=== PATIENT | female | born 1960 | race Caucasian/White ===

== ENCOUNTER 2018-09-07 16:55 | Day surgery (SDC) | payer OTHER ==
[~2018-09-07] VITALS: Ht 160 cm; Wt 104.3 kg
[2018-09-07 16:55] VITALS: BP_SYST 165
[2018-09-07 17:19] LABS: BASOPHILS # (AUTO) 0.1 K/uL (0.0-0.2); BASOPHILS % (AUTO) 0.8 % (0.0-2.0); EOSINOPHILS # (AUTO) 0.2 K/uL (0.0-0.4); EOSINOPHILS % (AUTO) 2.8 % (0.0-4.0); HEMATOCRIT 42.3 % (36-48); HEMOGLOBIN 14.5 g/dL (12.0-16.0); LYMPHOCYTES % (AUTO) 30.1 % (20.5-51.5); MEAN CORPUSCULAR HEMOGLOBIN 31 pg (27-31); MEAN CORPUSCULAR HGB CONC 34 % (32-36); MEAN CORPUSCULAR VOLUME 91 fL (79.0-98.0); MONOCYTES # (AUTO) 0.7 K/uL (0.0-1.0); MONOCYTES % (AUTO) 11.2 % (1.7-9.3); NEUTROPHILS # (AUTO) 3.7 K/uL (1.8-7.7); NEUTROPHILS % (AUTO) 55.1 % (40.0-70.0); PLATELET COUNT (AUTO) 205 K/uL (130-430); RED BLOOD CELL COUNT(AUTO) 4.63 MIL/uL (4.2-6.2); RED CELL DISTRIBUTION WIDTH 12.6 % (9.0-15.0); WHITE BLOOD COUNT (AUTO) 6.7 K/uL (4.8-10.8)
[2018-09-07] MEDS ORDERED: EST1 PO (17:51)
[2018-09-07] MEDS ORDERED: HYDR200T80 PO (17:51)
[2018-09-07] MEDS ORDERED: CHOL500037 PO (17:54)
[2018-09-07] MEDS ORDERED: DOCU-144 PO (17:54)
[2018-09-07] MEDS ORDERED: BUPIVACAINE /DEX PF 0.75% SPINAL 2 ML AMP INJ ONE (18:00)
[2018-09-07] MEDS ORDERED: LEVOFLOXACIN 750 mg/D5W 150 mL IVPB IV ONE (18:00)
[2018-09-07] MEDS ORDERED: PROPOFOL 200MG/ 20ML VIAL (DIPRIVAN) IV ONE (18:00)
[2018-09-07] MEDS ORDERED: NS IRRIG SOLN 1000 ML IR ONE (18:00)
[2018-09-07] MEDS ORDERED: MIDAZOLAM HCL 5 MG/5 ML VIAL IVP ONE (18:00)
[2018-09-07] MEDS ORDERED: LR 1,000 ML IV.SOLN IV ONE (18:00)
[2018-09-07 18:01] LABS: CALCIUM 9.5 mg/dL (8.4-11.0); CREATININE 0.7 mg/dL (0.55-1.30); POTASSIUM 3.9 mmol/L (3.5-5.1)
[2018-09-07 18:04] LABS: INR 0.9 (0.8-1.2); PROTHROMBIN TIME 9.4 SECS (9.5-12.5)
[2018-09-07 18:06] LABS: ALBUMIN 3.7 g/dL (3.4-4.8); TOTAL BILIRUBIN 0.6 mg/dL (0.0-1.0)
[2018-09-07] MEDS ORDERED: fentaNYL CITRATE/PF 100 MCG/2 ML AMP IVP PRN ×2 (19:00)
[2018-09-07] MEDS ORDERED: ONDANSETRON HCL 4 MG/2 ML VIAL IVP PRN ×2 (19:00→19:30)
[2018-09-07] MEDS ORDERED: HYDROcodone/ACETAMIN 5-325 MG TAB (NORCO/ VICODIN) PO PRN ×2 (19:30→21:30)
[2018-09-07] MEDS ORDERED: HYDROCORTISONE 2.5%, 30 GM TOPICAL CREAM TP PRN (19:30)
[2018-09-07] MEDS ORDERED: OXYCODONE/ACETAMINOPHEN 5-325 TABLET PO PRN ×2 (19:30)
[2018-09-07 20:22] VITALS: BP_SYST 123
== END 2018-09-07 23:40 | disposition home or self-care (01) ==
LOC: SED 16:55 → SRR 18:02 → SPU 20:06 → UNDOADMOB 20:06 → UNDODISOB 23:40 → SDS 23:40
PROVIDERS: ATTEND Specialist
DX: N76.5 Ulceration of vagina (principal); Z90.710 Acquired absence of both cervix and uterus; Z98.890 Other specified postprocedural states; K64.5 Perianal venous thrombosis; Z88.0 Allergy status to penicillin; Z79.899 Other long term (current) drug therapy; E66.3 Overweight
CPT/HCPCS: 36415; 46999; 57105; 71045; 80053; 83880; 84484; 85025; 85610; 86886; 86900; 86901; 88304; 88305; 93005; 94760; 99285; J1956; J2250; J2704; J3490; J7120; G0378; J2405